=== PATIENT | female | born 1995 | race Hispanic/Latino ===

== ENCOUNTER 2018-06-13 08:05 | Emergency (ER) | payer OTHER, SELFPAY ==
[2018-06-13 08:38] LABS: Urine Blood TRACE (NEG); Urine Glucose NEGATIVE (NEG); Urine Protein NEGATIVE (NEG); Urine Specific Gravity 1.025 (1.005-1.030); Urine pH 5.5 (5.0-7.0)
[2018-06-13] MEDS ORDERED: NA CHLORIDE 0.9% 1,000 ML ONE (08:43)
[2018-06-13 08:55] LABS: Absolute Lymphocytes (CBC) 1.3 K/uL (0.7-4.9); Absolute Monocytes 0.4 K/uL (0.1-1.3); Absolute Neutrophil 6.4 K/uL (1.8-8.0); Basophils % 0.7 % (0-1.3); Eosinophils % 1.6 % (0-4.4); Hematocrit 40.2 % (36.0-45.0); Lymphocytes % 15.6 % (15.3-44.8); MCH 31.5 pg (27.0-35.0); MCV 91.2 fL (80-100); MPV 8.8 fL (7.6-11.3); Monocytes % 4.6 % (3.3-12.3)
[2018-06-13 09:28] LABS: BUN Blood Urea Nitrogen 10 mg/dL (7-18); Bicarbonate 25 mmol/L (21-32); Glucose Level 102 mg/dL (74-106); HCG, Quantitative 75233 mIU/mL (1-3); Potassium 3.5 mmol/L (3.5-5.1); Sodium Level 140 mmol/L (136-145)
--- NOTE | 2018-06-13 10:14 | ER ---
Nurse's Notes [facility] Name: Kenia Aldrich Age: 22 yrs Sex: Female : 1995 Arrival Date: 06/13/2018 Time: 08:07 Bed 14 Private MD: Diagnosis: Incomplete spontaneous without complication Presentation: 06/13 08:13 Presenting complaint: Patient states: LMP started 04/03/18, last night at 2300 had ch bright red vaginal bleeding, soaked underwear and shorts. since then has been mild red bleeding, medium to small amount. c/o cramping down low, states is about a 2-3 on pain scale. Transition of care: patient was not received from another setting of care. Onset of symptoms was June 12, 2018 at 23:00. Risk Assessment: Do you want to hurt yourself or someone else? Patient reports no desire to harm self or others. Initial Sepsis Screen: Does the patient meet any 2 criteria? No. Patient's initial sepsis screen is negative. Does the patient have a suspected source of infection? No. Patient's initial sepsis screen is negative. Care prior to arrival: None. 08:13 Method Of Arrival: Ambulatory 08:13 Acuity: LAMBERT 3 ch Triage Assessment: 08:15 General: Appears in no apparent distress. comfortable, Behavior is calm, cooperative, ch appropriate for age. Pain: Complains of pain in low back area and pelvis Pain currently is 3 out of 10 on a pain scale. : Reports vaginal bleeding that is bright red, light flow. 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 - Social history:: Smoking status: Patient/guardian denies using tobacco, Patient/guardian denies using alcohol, street drugs. - Ebola Screening: : Patient negative for fever greater than or equal to 101.5 degrees Fahrenheit, and additional compatible Ebola Virus Disease symptoms Patient denies exposure to infectious person Patient denies travel to an Ebola-affected area in the 21 days before illness onset No symptoms or risks identified at this time. Screenin:16 Abuse screen: Denies threats or abuse. Denies injuries from another. Nutritional ch screening: No deficits noted. Tuberculosis screening: No symptoms or risk factors identified. Fall Risk None identified. Assessment: 08:20 Obstetrical Assessment: Patient reports vaginal bleeding that started yesterday as mild cc3 streaks of blood and patient noticed it became worse this morning. General: Appears in no apparent distress. comfortable, Behavior is calm, cooperative, appropriate for age. Pain: Denies pain. Neuro: Level of Consciousness is awake, alert, obeys commands, Oriented to person, place, time, situation, Appropriate for age. Cardiovascular: Denies chest pain, Capillary refill < 3 seconds is brisk in bilateral. Respiratory: Airway is patent Respiratory effort is even, unlabored, Respiratory pattern is regular, symmetrical. GI: No signs and/or symptoms were reported involving the gastrointestinal system. : Reports vaginal bleeding that is bright red, with clots, light flow. EENT: No signs and/or symptoms were reported regarding the EENT system. Derm: No signs and/or symptoms reported regarding the dermatologic system. Musculoskeletal: No signs and/or symptoms reported regarding the musculoskeletal system. 09:30 Reassessment: Patient and/or family updated on plan of care and expected duration. Pain cc3 level reassessed. Patient is alert, oriented x 3, equal unlabored respirations, skin warm/dry/pink. wheeled to US;. 10:05 Reassessment: back form US;. Reassessment: Patient and/or family updated on plan of cc3 care and expected duration. Pain level reassessed. Vital Signs: 08:15 BP 118 / 72; Pulse 84; Resp 12; Temp 97.8; Pulse Ox 99% on R/A; Weight 66.22 kg; Height ch 5 ft. 5 in. (165.10 cm); Pain 3/10; 09:23 BP 119 / 74; Pulse 73; Resp 15; Pulse Ox 95% on R/A; Pain 0/10; cc3 10:50 BP 120 / 75; Pulse 70; Resp 18; Pulse Ox 100% on R/A; hj 08:15 Body Mass Index 24.30 (66.22 kg, 165.10 cm) Vitals: 10:50 Heart Tones does not meet parameters;. ED Course: 08:07 Patient arrived in ED. rg4 08:14 Triage completed. 08:15 Cynthia Triana FNP-C is [facility]. snw 08:15 Lan Esquivel MD is Attending Physician. snw 08:15 Arm band placed on left wrist. Patient placed in an exam room, on a stretcher. 08:16 Patient has correct armband on for positive identification. Bed in low position. Call light in reach. Side rails up X 1. 08:17 Génesis Peterson is Primary Nurse. cc3 08:30 Inserted saline lock: 22 gauge in right antecubital area, using aseptic technique. cc3 Blood collected. 08:30 Initial lab(s) drawn, by tn, sent to lab. Urine collected: clean catch specimen, alex cc3 colored. 09:47 US Transvaginal Ob In Process Unspecified. EDMS 10:09 Yodit Fermin MD is Referral Physician. snw 10:49 No provider procedures requiring assistance completed. IV discontinued, intact, hj bleeding controlled, No redness/swelling at site. Pressure dressing applied. Administered Medications: 08:45 Drug: NS 0.9% 1000 ml Route: IV; Rate: 125 ml/hr; Site: right antecubital; cc3 10:51 Follow up: IV Status: Order to discontinue infusion; IV Intake: 500ml Point of Care Testing: Urine : 08:30 hCG Reading: Positive; cc3 Intake: 10:51 IV: 500ml; Total: 500ml. Outcome: 10:13 Discharge ordered by . snw 10:50 Discharged to home ambulatory. hj 10:50 Condition: stable 10:50 Discharge instructions given to patient, family, Instructed on discharge instructions, follow up and referral plans. Demonstrated understanding of instructions, follow-up care. 10:51 Patient left the ED. Signatures: Dispatcher [employer] EDShena Licona, GUANACO BLANC Cynthia Triana FNP-C FNP-Csnw Agus Almendarez RN RN hj Garcia, Rubi rg4 Génesis Peterson cc3
--- NOTE | 2018-06-13 10:14 | EDPHYS ---
Physician Documentation [facility] Name: Kenia Aldrich Age: 22 yrs Sex: Female : 1995 Arrival Date: 06/13/2018 Time: 08:07 Bed 14 Private MD: ED Physician Lan Esquivel HPI: 06/13 08:41 This 22 yrs old Female presents to ER via Ambulatory with complaints of snw Vaginal Bleeding, + Preg <12wks. 08:41 The patient presents with vaginal bleeding that is moderate. Onset: The snw symptoms/episode began/occurred suddenly, yesterday. Modifying factors: The symptoms are alleviated by nothing. Associated signs and symptoms: Pertinent positives: vaginal bleeding. Severity of symptoms: At their worst the symptoms were moderate, severe. during one of her previous pregnancies. The patient has not recently seen a physician, no OB presently. 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 - Social history:: Smoking status: Patient/guardian denies using tobacco, Patient/guardian denies using alcohol, street drugs. - Ebola Screening: : Patient negative for fever greater than or equal to 101.5 degrees Fahrenheit, and additional compatible Ebola Virus Disease symptoms Patient denies exposure to infectious person Patient denies travel to an Ebola-affected area in the 21 days before illness onset No symptoms or risks identified at this time. ROS: 08:38 Constitutional: Negative for fever, chills, and weight loss, Eyes: Negative for injury, snw pain, redness, and discharge, ENT: Negative for injury, pain, and discharge, Neck: Negative for injury, pain, and swelling, Cardiovascular: Negative for chest pain, palpitations, and edema, Respiratory: Negative for shortness of breath, cough, wheezing, and pleuritic chest pain, Back: Negative for injury and pain, : Negative for injury, discharge, and swelling, + vaginal bleeding last pm. Pt is , high risk last for similar s/s, used OB in [place] MS/Extremity: Negative for injury and deformity, Skin: Negative for injury, rash, and discoloration, Neuro: Negative for headache, weakness, numbness, tingling, and seizure. 08:38 Abdomen/GI: Positive for abdominal cramps, 'sore'. Exam: 08:38 Constitutional: This is a well developed, well nourished patient who is awake, alert, snw and in no acute distress. Head/Face: Normocephalic, atraumatic. Eyes: Pupils equal round and reactive to light, extra-ocular motions intact. Lids and lashes normal. Conjunctiva and sclera are non-icteric and not injected. Cornea within normal limits. Periorbital areas with no swelling, redness, or edema. ENT: Nares patent. No nasal discharge, no septal abnormalities noted. Tympanic membranes are normal and external auditory canals are clear. Oropharynx with no redness, swelling, or masses, exudates, or evidence of obstruction, uvula midline. Mucous membranes moist. Neck: Trachea midline, no thyromegaly or masses palpated, and no cervical lymphadenopathy. Supple, full range of motion without nuchal rigidity, or vertebral point tenderness. No Meningismus. Chest/axilla: Normal chest wall appearance and motion. Nontender with no deformity. No lesions are appreciated. Cardiovascular: Regular rate and rhythm with a normal S1 and S2. No gallops, murmurs, or rubs. Normal PMI, no JVD. No pulse deficits. Respiratory: Lungs have equal breath sounds bilaterally, clear to auscultation and percussion. No rales, rhonchi or wheezes noted. No increased work of breathing, no retractions or nasal flaring. Abdomen/GI: Soft, non-tender, with normal bowel sounds. No distension or tympany. No guarding or rebound. No evidence of tenderness throughout. Back: No spinal tenderness. No costovertebral tenderness. Full range of motion. Skin: Warm, dry with normal turgor. Normal color with no rashes, no lesions, and no evidence of cellulitis. MS/ Extremity: Pulses equal, no cyanosis. Neurovascular intact. Full, normal range of motion. Neuro: Awake and alert, GCS 15, oriented to person, place, time, and situation. Cranial nerves II-XII grossly intact. Motor strength 5/5 in all extremities. Sensory grossly intact. Cerebellar exam normal. Normal gait. Psych: Awake, alert, with orientation to person, place and time. Behavior, mood, and affect are within normal limits. Vital Signs: 08:15 BP 118 / 72; Pulse 84; Resp 12; Temp 97.8; Pulse Ox 99% on R/A; Weight 66.22 kg; Height ch 5 ft. 5 in. (165.10 cm); Pain 3/10; 09:23 BP 119 / 74; Pulse 73; Resp 15; Pulse Ox 95% on R/A; Pain 0/10; cc3 10:50 BP 120 / 75; Pulse 70; Resp 18; Pulse Ox 100% on R/A; hj 08:15 Body Mass Index 24.30 (66.22 kg, 165.10 cm) ch MDM: 08:15 Patient medically screened. snw 10:06 Data reviewed: vital signs, nurses notes, radiologic studies, ultrasound. Data snw interpreted: Pulse oximetry: on room air is 95 %. Interpretation: acceptable. Counseling: I had a detailed discussion with the patient and/or guardian regarding: the historical points, exam findings, and any diagnostic results supporting the discharge/admit diagnosis, lab results, radiology results, the need for outpatient follow up, an OB/Gyne specialist. Physician consultation: Yodit Fermin MD was called at 10:08, was contacted at 10:09, and will see patient in office, 06/15/18 at 10:15. 06/13 08:16 Order name: Quantitative Hcg; Complete Time: 09:31 snw 06/13 08:16 Order name: Abo/rh Typing [facility] 06/13 08:16 Order name: Basic Metabolic Panel; Complete Time: 09:31 snw 06/13 08:16 Order name: CBC with Diff; Complete Time: 09:14 snw 06/13 08:33 Order name: Urine Dipstick--Ancillary (enter results) bd 06/13 08:33 Order name: Urine --Ancillary (enter results) bd 06/13 08:16 Order name: Urine Test (obtain specimen); Complete Time: 08:49 snw 06/13 08:16 Order name: IV Saline Lock; Complete Time: 08:49 snw 06/13 08:16 Order name: Labs collected and sent; Complete Time: 08:49 snw 06/13 08:16 Order name: NPO; Complete Time: 08:18 snw 06/13 08:33 Order name: Urine Dipstick-Ancillary; Complete Time: 09:14 EDMS 06/13 08:33 Order name: Urine --Ancillary; Complete Time: 09:14 EDMS 06/13 09:14 Order name: US Transvaginal Ob; Complete Time: 10:43 snw 06/13 08:16 Order name: Urine Dipstick-Ancillary (obtain specimen); Complete Time: 08:49 snw Administered Medications: 08:45 Drug: NS 0.9% 1000 ml Route: IV; Rate: 125 ml/hr; Site: right antecubital; cc3 10:51 Follow up: IV Status: Order to discontinue infusion; IV Intake: 500ml Point of Care Testing: Urine : 08:30 hCG Reading: Positive; cc3 Disposition: 13:19 Co-signature as Attending Physician, Lan Esquivel MD I agree with the assessment and kdr plan of care. Disposition: 06/13/18 10:13 Discharged to Home. Impression: Incomplete spontaneous without complication. - Condition is Stable. - Discharge Instructions: Incomplete Miscarriage. - Prescriptions for Vitamin 27- 0.8 mg Oral Tablet - take 1 tablet by ORAL route once daily; 60 tablet. - Medication Reconciliation Form, Thank You Letter, Antibiotic Education, Prescription Opioid Use form. - Follow up: Yodit Fermin MD; When: 06/15/2018; Reason: Continuance of care. Signatures: Dispatcher MedHoMesilla Valley HospitalShena Licona RN RN ch Rittger, Kevin, MD MD [facility] Cynthia Triana, PRODUCT CONSULTANT-C PRODUCT CONSULTANT-Csnw Agus Almendarez RN RN Génesis Peterson cc3 Corrections: (The following items were deleted from the chart) 08:41 08:38 Constitutional: Negative for fever, chills, and weight loss, Eyes: Negative for snw injury, pain, redness, and discharge, ENT: Negative for injury, pain, and discharge, Neck: Negative for injury, pain, and swelling, Cardiovascular: Negative for chest pain, palpitations, and edema, Respiratory: Negative for shortness of breath, cough, wheezing, and pleuritic chest pain, Back: Negative for injury and pain, : Negative for injury, bleeding, discharge, and swelling, MS/Extremity: Negative for injury and deformity, Skin: Negative for injury, rash, and discoloration, Neuro: Negative for headache, weakness, numbness, tingling, and seizure, snw 10:51 10:13 06/13/2018 10:13 Discharged to Home. Impression: Incomplete spontaneous hj without complication. Condition is Stable. Forms are Medication Reconciliation Form, Thank You Letter, Antibiotic Education, Prescription Opioid Use. Follow up: Yodit Fermin; When: 06/15/2018; Reason: Continuance of care. snw
--- NOTE | 2018-06-13 10:43 | RAD REPORT ---
EXAM DESCRIPTION: US - Transvaginal OB - 06/13/2018 9:52 am CLINICAL HISTORY: VAGINAL BLEEDING<Reason For Exam>VAGINAL BLEEDING COMPARISON: Transvaginal OB dated 03/31/2017<Comparisons>Transvaginal OB dated 03/31/2017 FINDINGS: Uterus is 9.6 x 7.0 x 7.9 cm. No myometrial mass. An intrauterine gestational sac is seen with yolk sac. A hypoechoic pole is identified measurin g 9 weeks 0 days in size. Multiple attempts at obtaining cardiac activity were unsuccessful. No cardi ac activity is identifiable. No intrauterine mass or hematoma. No suspicious ovarian or adnexal finding. No blood or free fluid in the cul-de-sac. IMPRESSION: A 9 week 0 day sized pole is identified within the uterus. No cardiac activity is present.
[2018-06-13 11:04] VITALS: TEMP 97.8
[2018-06-13 11:07] VITALS: BP 120/75; O2SAT 100
== END 2018-06-13 10:51 | disposition home or self-care (01) ==
LOC: ER 08:05
DX: O03.4 Incomplete spontaneous abortion without complication (principal); Z3A.09 9 weeks gestation of pregnancy
CPT/HCPCS: 36415; 76817; 80048; 81003; 81025; 84702; 85025; 86900; 86901; 96360; 96361; 99284; J7030

== ENCOUNTER 2019-01-10 19:04 | Emergency (ER) | payer MEDICAID, SELFPAY ==
--- OUTSIDE RECORDS SUMMARY | 2019-01-10 19:06 | XMS REPORT ---
:1995 Author Organization [employer] Care Team Providers Name Role Phone Yodit Fermin Provider Role Unavailable Allergies, Adverse Reactions, Alerts Substance Reaction Event Type N.K.D.A. Info Not Available Non Drug Allergy Problems Problem Type Condition Code Onset Dates Condition Status Assessment Missed O02.1 Active Medications No Known Medications Results No Known Results Summary Purpose [employer] Submission
--- OUTSIDE RECORDS SUMMARY | 2019-01-10 19:06 | XMS REPORT ---
:1995 Author Organization [employer] Care Team Providers Name Role Phone Yodit Fermin Provider Role Unavailable Allergies, Adverse Reactions, Alerts Substance Reaction Event Type N.K.D.A. Info Not Available Non Drug Allergy Problems Problem Type Condition Code Onset Dates Condition Status Assessment Miscarriage O03.9 Active Medications Medication Code System Code Instructions Start End Date Status Dosage Date Ibuprofen [facility] 74182873285 800 MG Orally Jun 30, Jul 07, Active 1 tablet Three times a 2017 2017 with food day as needed or milk as needed Cytotec [facility] 49017280967 200 MCG Jun 30, Jul 01, Active 4 tablets Vaginally once 2017 2017 Results No Known Results Summary Purpose eClinicalWorks Submission
--- OUTSIDE RECORDS SUMMARY | 2019-01-10 19:06 | XMS REPORT ---
:1995 Author Organization [employer] Care Team Providers Name Role Phone Yodit Fermin Provider Role Unavailable Allergies No Known Allergies Problems No Known Problems Medications No Known Medications Results No Known Results Summary Purpose [employer]ClinicalWorks Submission
--- NOTE | 2019-01-10 22:49 | ER ---
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 Transition of care: patient was not received from another setting of care. Onset of symptoms was January 10, 2019. Risk Assessment: Do you want to hurt yourself or someone else? Patient reports no desire to harm self or others. Initial Sepsis Screen: Does the patient meet any 2 criteria? No. Patient's initial sepsis screen is negative. Does the patient have a suspected source of infection? No. Patient's initial sepsis screen is negative. Care prior to arrival: None. 19:25 Method Of Arrival: Ambulatory lp1 19:25 Acuity: LAMBERT 4 lp1 Triage Assessment: 21:42 General: Appears in no apparent distress. comfortable, Behavior is calm, cooperative, cc3 appropriate for age. Pain: Complains of pain in generalized body pain. EENT: No signs and/or symptoms were reported regarding the EENT system. Neuro: Level of Consciousness is awake, alert, obeys commands, Oriented to person, place, time, situation, Appropriate for age. Cardiovascular: Patient's skin is warm and dry. Respiratory: Airway is patent Respiratory effort is even, unlabored, Respiratory pattern is regular, symmetrical. GI: Abdomen is flat. : No signs and/or symptoms were reported regarding the genitourinary system. Derm: No signs and/or symptoms reported regarding the dermatologic system. Musculoskeletal: Circulation, motion, and sensation intact. Range of motion: intact in all extremities. 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 - Social history:: Smoking status: Patient/guardian denies using tobacco. - Ebola Screening: : No symptoms or risks identified at this time. Screenin:42 Abuse screen: Denies threats or abuse. Denies injuries from another. Nutritional cc3 screening: No deficits noted. Tuberculosis screening: No symptoms or risk factors identified. Fall Risk Ambulatory Aid- None/Bed Rest/Nurse Assist (0 pts). Gait- Normal/Bed Rest/Wheelchair (0 pts) Mental Status- Oriented to own ability (0 pts). Assessment: 21:42 General: see triage assessment. cc3 22:18 Reassessment: Patient appears in no apparent distress at this time. Patient and/or cc3 family updated on plan of care and expected duration. Pain level reassessed. Patient is alert, oriented x 3, equal unlabored respirations, skin warm/dry/pink. 23:00 Reassessment: Patient appears in no apparent distress at this time. Patient and/or cc3 family updated on plan of care and expected duration. Pain level reassessed. Patient is alert, oriented x 3, equal unlabored respirations, skin warm/dry/pink. JUDI Daley discharged the patient home with prescription given. No IV cannula in situ. Patient left ER vitally stable and ambulatory with family. Vital Signs: 19:28 BP 134 / 91; Pulse 98; Resp 16; Temp 98.2(O); Pulse Ox 97% on R/A; Weight 63.5 kg; lp1 Height 5 ft. 5 in. (165.10 cm); Pain 9/10; 21:36 BP 97 / 68; Pulse 90; Resp 19; Temp 98.6(O); Pulse Ox 99% on R/A; mt 22:50 BP 107 / 66; Pulse 91; Resp 18 S; Pulse Ox 99% on R/A; cc3 19:28 Body Mass Index 23.30 (63.50 kg, 165.10 cm) lp1 ED Course: 19:11 Patient arrived in ED. es 19:27 Triage completed. lp1 19:28 Arm band placed on right wrist. lp1 19:33 Flu and/or RSV swab sent to lab. Strep swab sent to lab. lp1 21:35 Jose Daley PA is PHCP. [facility] 21:35 Jassi Boyd MD is Attending Physician. [facility] 21:42 Génesis Peterson is Primary Nurse. cc3 21:42 Patient has correct armband on for positive identification. Bed in low position. Call cc3 light in reach. Side rails up X 1. Pulse ox on. NIBP on. 23:00 No provider procedures requiring assistance completed. Patient did not have IV access cc3 during this emergency room visit. Administered Medications: 22:50 Drug: Motrin 800 mg Route: PO; cc3 23:00 Follow up: Response: No adverse reaction cc3 Outcome: 22:48 Discharge ordered by . [facility] 23:00 Discharged to home ambulatory, with family. cc3 23:00 Condition: stable 23:00 Discharge instructions given to patient, Instructed on discharge instructions, follow up and referral plans. medication usage, Demonstrated understanding of instructions, follow-up care, medications, Prescriptions given X 1. 23:04 Patient left the ED. cc3 Signatures: Jose Daley PA PA [place] Laura, RN RN lp1 Alison Vanessa mn Génesis Peterson cc3 Corrections: (The following items were deleted from the chart) 01/11 03:31 03 22:15 BP 107 / 66; Pulse 91bpm; Resp 18bpm; Spontaneous; Pulse Ox 99% RA; cc3 cc3
--- NOTE | 2019-01-10 22:49 | EDPHYS ---
Physician Documentation [facility] Name: Kenia Aldrich Age: 23 yrs Sex: Female : 1995 Arrival Date: 01/10/2019 Time: 19:11 Bed DIS1 Private MD: ED Physician Jassi Boyd HPI: 01/10 21:41 This 23 yrs old Female presents to ER via Ambulatory with complaints of Flu jmm Symptoms. 21:41 The patient or guardian reports cough, described as moderate. Onset: The jmm symptoms/episode began/occurred gradually, 2 day(s) ago. Associated signs and symptoms: Pertinent positives: chest pain, with cough, earache, fever, sore throat. This is a 23 year old female with a history of depression that presents to the ED with complaints of cough, congestion, fever, body aches, beginning 2 days ago. Patient also complains of chest pain on cough. . TRANSLATIONAL SPECIALIST: 19:28 LMP N/A - Depo-provera lp1 Historical: - Allergies: 19:28 NKA; lp1 - Home Meds: 19:28 None [Active]; lp1 - PMHx: 19:28 Depression; lp1 - PSHx: 19:28 D \T\ C; lp1 - Immunization history:: Adult Immunizations up to date, Flu vaccine is not up to date. - Social history:: Smoking status: Patient/guardian denies using tobacco. - Ebola Screening: : No symptoms or risks identified at this time. ROS: 21:41 Constitutional: Positive for fever. jmm 21:41 ENT: Positive for ear pain, sinus congestion, sore throat. 21:41 Cardiovascular: Positive for chest pain, with cough. 21:41 Respiratory: Positive for cough. 21:41 All other systems are negative. Exam: 21:41 Constitutional: This is a well developed, well nourished patient who is awake, alert, jmm and in no acute distress. Head/Face: atraumatic. Eyes: EOMI, no conjunctival erythema appreciated ENT: Moist Mucus Membranes Neck: Trachea midline, Supple Chest/axilla: Normal chest wall appearance and motion. 21:41 Back: Normal ROM Skin: General appearance color normal MS/ Extremity: Moves all extremities, no obvious deformities appreciated, no edema noted to the lower extremities Neuro: Awake and alert, normal gait Psych: Behavior is normal, Mood is normal, Patient is cooperative and pleasant 21:41 Chest/axilla: Palpation: tenderness, that is moderate, that totally reproduces the patient's complaints. 21:41 Cardiovascular: Rate: normal, Rhythm: regular. 21:41 Respiratory: the patient does not display signs of respiratory distress, Respirations: normal, Breath sounds: are clear throughout. 21:41 Abdomen/GI: Inspection: abdomen appears normal, Bowel sounds: normal, Palpation: abdomen is soft and non-tender, in all quadrants. Vital Signs: 19:28 BP 134 / 91; Pulse 98; Resp 16; Temp 98.2(O); Pulse Ox 97% on R/A; Weight 63.5 kg; lp1 Height 5 ft. 5 in. (165.10 cm); Pain 9/10; 21:36 BP 97 / 68; Pulse 90; Resp 19; Temp 98.6(O); Pulse Ox 99% on R/A; mt 22:50 BP 107 / 66; Pulse 91; Resp 18 S; Pulse Ox 99% on R/A; cc3 19:28 Body Mass Index 23.30 (63.50 kg, 165.10 cm) lp1 MDM: 21:49 Patient medically screened. robert 22:48 Data reviewed: vital signs, nurses notes. Counseling: I had a detailed discussion with tessie the patient and/or guardian regarding: the historical points, exam findings, and any diagnostic results supporting the discharge/admit diagnosis, lab results, the need for outpatient follow up, to return to the emergency department if symptoms worsen or persist or if there are any questions or concerns that arise at home. 22:48 ED course: Patient is alert and non toxic in appearance in the ED. FLU swab positive. tessie Will treat with tamiflu. Patient given strict return precautions. Patient understood and agrees with the plan of care. . 01/10 19:29 Order name: Flu; Complete Time: 21:41 lp1 01/10 19:29 Order name: Strep; Complete Time: 21:41 lp1 01/10 19:54 Order name: Throat Culture EDMS Administered Medications: 22:50 Drug: Motrin 800 mg Route: PO; cc3 23:00 Follow up: Response: No adverse reaction cc3 Disposition: 01/11 05:19 Co-signature as Attending Physician, Jassi Boyd MD. Disposition: 01/10/19 22:48 Discharged to Home. Impression: Influenza due to certain identified influenza viruses. - Condition is Stable. - Discharge Instructions: Influenza, Adult. - Prescriptions for Tamiflu 75 mg Oral Capsule - take 1 tablet by ORAL route every 12 hours for 5 days; 10 tablet. - Medication Reconciliation Form, Thank You Letter, Antibiotic Education, Prescription Opioid Use form. - Follow up: Private Physician; When: 2 - 3 days; Reason: Recheck today's complaints, Continuance of care, Re-evaluation by your physician. Signatures: Dispatcher [employer] EDMS Jose Daley PA PA jmm Pena, Laura, GUANACO RN lp1 Jassi Boyd MD MD Génesis Peterson cc3 Corrections: (The following items were deleted from the chart) 01/10 23:04 22:48 01/10/2019 22:48 Discharged to Home. Impression: Influenza due to certain cc3 identified influenza viruses. Condition is Stable. Forms are Medication Reconciliation Form, Thank You Letter, Antibiotic Education, Prescription Opioid Use. Follow up: Private Physician; When: 2 - 3 days; Reason: Recheck today's complaints, Continuance of care, Re-evaluation by your physician. tessie
[2019-01-10] MEDS ORDERED: IBUPROFEN 400 MG TAB ONE (23:06)
[2019-01-11 01:27] VITALS: BP 97/68; TEMP 98.6; O2SAT 99
== END 2019-01-10 23:04 | disposition home or self-care (01) ==
LOC: ER 19:04
DX: J10.1 Influenza due to other identified influenza virus with other respiratory manifestations (principal)
CPT/HCPCS: 87070; 87081; 87804; 99284